=== PATIENT | female | born 1955 | race Caucasian/White ===

== ENCOUNTER 2021-05-01 12:12 | Outpatient (CLI) | payer MEDICARE, OTHER | END 2021-05-01 12:13 | disposition home or self-care (01) | LOC: CSHMAMMO 12:12 | PROVIDERS: ATTEND Family Medicine Sports Medicine | DX: Z12.31 Encounter for screening mammogram for malignant neoplasm of breast (principal) | CPT/HCPCS: 77063; 77067 ==